=== PATIENT | female | born 1960 | race Two or more races ===

== ENCOUNTER 2022-08-12 16:38 | Emergency (ER) | payer OTHER ==
[~2022-08-12] VITALS: Ht 157.5 cm; Wt 65.3 kg
== END 2022-08-13 14:34 | disposition home or self-care (01) ==
LOC: ER 16:38
DX: R42 Dizziness and giddiness (principal); E11.9 Type 2 diabetes mellitus without complications; I10 Essential (primary) hypertension
CPT/HCPCS: 70551